=== PATIENT | female | born 1970 | race American Indian/Alaskan Native ===

== ENCOUNTER 2018-08-06 12:05 | Observation (INO) | payer OTHER ==
[2018-08-05 10:56] LABS: Basophils # (Auto) 0.1 K/mm3 (0.0-0.1); Basophils % (Auto) 1.2 % (0.0-1.8); Eosinophils # (Auto) 0.3 K/mm3 (0.0-0.4); Eosinophils % (Auto) 3.9 % (0.0-4.3); Hemoglobin 10.1 gm/dl (10.1-14.3); Lymphocytes # (Auto) 1.4 K/mm3 (1.2-5.4); Lymphocytes % (Auto) 20.2 % (13.4-35.0); Monocytes # (Auto) 0.4 K/mm3 (0.0-0.8); Monocytes % (Auto) 6.4 % (0.0-7.3)
[2018-08-05 11:12] LABS: Hematocrit 31.3 % (30.3-42.9); Mean Corpuscular HGB Conc 32 % (30-34); Mean Corpuscular Volume 72 fl (79-97); Red Blood Count 4.37 M/mm3 (3.65-5.03)
[2018-08-05 11:13] LABS: Platelet Count 506 K/mm3 (140-440); Red Cell Distribution Width 18.8 % (13.2-15.2)
--- NOTE | 2018-08-05 14:43 | Anesthesia Consultation ---
Anesthesia Consult and Med Hx Date of service: 08/05/18 - Airway Anesthetic Teeth Evaluation: Good ROM Head & Neck: Adequate Mental/Hyoid Distance: Adequate Mallampati Class: Class III - Pulmonary Exam CTA: Yes - Cardiac Exam Cardiac Exam: RRR (grade 2/6 early systolic murmur) - Pre-Operative Health Status ASA Pre-Surgery Classification: ASA2 Proposed Anesthetic Plan: General Nerve Block: TAP - Pulmonary Hx Smoking: No Hx Respiratory Symptoms: No - Cardiovascular System Hx Hypertension: No Hx Heart Attack/AMI: No Hx Cardia Arrhythmia: No - Central Nervous System CVA: No Hx Psychiatric Problems: No - Gastrointestinal Hx Gastroesophageal Reflux Disease: Yes - Endocrine Hx Renal Disease: No Hx Liver Disease: No Hx Insulin Dependent Diabetes: No Hx Non-Insulin Dependent Diabetes: No Hx Thyroid Disease: No - Hematic Hx Anemia: Yes - Other Systems Hx Alcohol Use: Yes (Occas) Hx Cancer: No Hx Obesity: Yes - Additional Comments Anesthesia Medical History Comments: Hx PONV with prior anesthetics. Consented for preop TAP block.
--- NOTE | 2018-08-05 16:25 | History and Physical Report ---
History of Present Illness Date of examination: 08/05/18 Date of admission: 08/06/2018 Chief complaint: uterine fibroids History of present illness: 47y/o with a history of uterine fibroids and menorrhagia. The patient underwent an ultrasound with findings of an enlarged uterus with the largest myoma being 7.1cm. The patient has elected for surgical management. Past History Past Medical History: other (anemia) Past Surgical History: other (tubal ligation) [employer] History: fibroids Social history: - Obstetrical History : 3 Para: 2 Hx # Term Pregnancies: 2 Number of Pregnancies: 0 Spontaneous Abortions: 1 Induced : 0 Number of Living Children: 2 Medications and Allergies Allergies Allergy/AdvReac Type Severity Reaction Status Date / Time No Known Allergies Allergy Unverified 08/03/18 13:32 Home Medications Medication Instructions Recorded Confirmed Last Taken Type No Known Home Medications [No 08/03/18 08/03/18 Unknown History Reported Home Medications] Active Meds: Active Medications Celecoxib (Celebrex) 200 mg PO PREOP NR Stop: 08/06/18 23:59 Fentanyl (Sublimaze) 100 mcg IV ONCE PRN PRN Reason: sedation for nerve block Stop: 08/06/18 23:59 Gabapentin (Neurontin) 300 mg PO PREOP NR Stop: 08/06/18 23:59 Lactated Ringer's (Lactated Ringers) 1,000 mls @ 100 mls/hr IV DIRECT JANES Midazolam HCl (Versed) 2 mg IV PREOP NR Stop: 08/06/18 23:59 Scopolamine (Transderm-Scop) 1 each TD PREOP NR Stop: 08/08/18 05:59 Review of Systems All systems: negative Genitourinary: vaginal bleeding, pelvic pain - Vital Signs Vital signs: Vital Signs Temp Pulse Resp BP Pulse Ox 98.1 F 76 20 136/63 99 08/05/18 10:20 08/05/18 10:20 08/05/18 10:20 08/05/18 10:20 08/05/18 10:20 Temp Pulse Resp BP Pulse Ox 98.1 F 76 20 136/63 99 08/05/18 10:20 08/05/18 10:20 08/05/18 10:20 08/05/18 10:20 08/05/18 10:20 - Physical Exam Breasts: Positive: deferred Cardiovascular: Regular rate Lungs: Positive: Clear to auscultation Abdomen: Positive: normal appearance Results Result Diagrams: 08/05/18 10:15 Abnormal lab results 08/05/18 Range/Units 10:15 MCV 72 L (79-97) fl MCH 23 L (28-32) pg RDW 18.8 H (13.2-15.2) % Plt Count 506 H (140-440) K/mm3 All other labs normal. Assessment and Plan - Patient Problems (1) Uterine fibroid Status: Acute Plan to address problem: scheduled for a robotic hysterectomy (2) DUB (dysfunctional uterine bleeding) Status: Acute (3) Anemia Status: Acute
[~2018-08-06 12:05] MED LIST: ANCEF/STERILE WATER 2 GM/20 ML 2 GM/20 ML SYRINGE IV NR; LACTATED RINGERS 1,000 ML IV SCH; NEURONTIN PO NR; SUBLIMAZE IV PRN; TRANSDERM-SCOP TD NR; VERSED IV NR
[2018-08-06] MEDS ORDERED: DECADRON ONE ×2 (12:18→16:31)
[2018-08-06] MEDS ORDERED: MARCAINE 0.25% INFILTRATI ONE (12:18)
[2018-08-06] MEDS ORDERED: DILAUDID IV PRN (12:26)
--- NOTE | 2018-08-06 12:26 | Anesthesia Day of Surgery ---
Anesthesia Day of Surgery - Day of Surgery Patient Examined: Yes Patient H&P Reviewed: Yes Patient is NPO: Yes
[2018-08-06] MEDS ORDERED: DILAUDID ONE (15:40)
[2018-08-06] MEDS ORDERED: DIPRIVAN 10 MG/ML IV ONE (15:41)
[2018-08-06] MEDS ORDERED: XYLOCAINE MPF 2% ONE (15:41)
[2018-08-06] MEDS ORDERED: ZEMURON IV ONE (15:43)
[2018-08-06] MEDS ORDERED: MARCAINE 0.5% INFILTRATI ONE ×2 (16:42→16:54)
[2018-08-06] MEDS ORDERED: NEOSPORIN GU IR ONE ×2 (16:42→16:51)
[2018-08-06] MEDS ORDERED: THROMBIN (BOVINE) TP ONE (16:55)
[2018-08-06] MEDS ORDERED: GELFOAM TP ONE (16:55)
[2018-08-06] MEDS ORDERED: NARCAN 0.4 MG/1 ML IV PRN (18:31)
[2018-08-06] MEDS ORDERED: TYLENOL PO PRN (18:32)
[2018-08-06] MEDS ORDERED: PERCOCET 5/325 PO PRN (18:32)
[2018-08-06] MEDS ORDERED: AMBIEN PO PRN (18:32)
[2018-08-06] MEDS ORDERED: ROBINUL ONE (18:36)
[2018-08-06] MEDS ORDERED: BLOXIVERZ ONE (18:36)
[2018-08-06] MEDS ORDERED: TORADOL ONE (18:36)
[2018-08-06] MEDS ORDERED: ZOFRAN ONE (18:36)
--- NOTE | 2018-08-06 18:41 | Operative Report ---
Operative Report Operative Report: Date of surgery: 08/06/2018 Preoperative diagnoses: Symptomatic uterine fibroids; menorrhagia Postoperative diagnoses: Same as above Procedure: Robotic hysterectomy; bilateral salpingectomy Surgeon: Zarina Bettencourt M.D. Dry Cans Back Tender: Phyllis Martin Anesthesia: Gen. endotracheal anesthesia Estimated blood loss: 150 mL Pathology: Uterus, cervix, bilateral tubes, leiomyoma Indication: 47-year-old with a history of symptomatic uterine fibroids. The patient elected to undergo definitive surgical management. Procedure: The patient was taken to the operating room and given general endotracheal anesthesia without complication. She is prepped and draped in a normal sterile fashion. A bivalve speculum was placed in the patient's vagina and a single- tooth tenaculum placed on the anterior lip of the cervix. The uterus was sounded with the uterine sound. A AOTMP uterine manipulator was placed in the bivalve speculum was then removed. Attention was then turned to the patient's abdomen where a millimeter supra umbilical skin incision was then made. A Veress needle was placed and peritoneal entry was verified water-filled syringe. Insufflation of the peritoneal cavity was performed with CO2 gas. The 12 mm trocar was then placed under direct visualization. An additional 8 mm trocar was placed on the patient's left and right lateral side just opposite of the supraumbilical trocar. An additional 5 mm right lateral trocar was then placed as the accessory port. The patient was then placed in steep Trendelenburg. The da Antoinette robot was then engaged. A fenestrated forcep was placed in arm 2 and a vessel sealer was placed in arm 1. The surgeon then transferred to the surgical console. General survey revealed a markedly enlarged fibroid uterus with multiple leiomyomas. The mesosalpinx was then isolated on the right. The vessel sealer was used to coagulate the mesosalpinx which was then transected. The tube was transected from the ovary. The tubo-ovarian ligament was then coagulated and transected. The round ligament was then coagulated and transected also. The vesicouterine peritoneum was then entered from the patient's right side. The uterine vessels were then coagulated with the vessel sealer. The vessels were then transected . Attention was then turned to the patient's left side where the tubo-ovarian ligament and mesosalpinx were again isolated coagulated and transected. The vesical peritoneum was then entered from the left and joined in the midline. Peritoneum was reflected off of the lower uterine segment. Uterine vessels were then coagulated and then transected. The blood supply to the uterus was adequately contained. A myomectomy had to be performed in order to decompress the uterus. The monopolar scissors were used to excise the serosa and a 8 cm leiomyoma was removed. There was an additional submucosal leiomyoma measuring 2-3 cm. The uterus was bivalved in order to facilitate delivery through the vagina. The V care ring was visualized. Posterior colpotomy was created with the monopolar scissors. The incision was continued circumferentially until anterior colpotomy was made. The cervix and uterus were amputated from the vaginal cuff. The uterus was then removed along with the tubes bilaterally and leiomyomas through the vagina and a warm laparotomy sponge was placed and maintain the pneumoperitoneum. The vaginal cuff was then closed in a running fashion with V lock suture. Irrigation of the pelvis was performed. Hemoblast was applied to the incision. The supraumbilical 12 mm trocar site was closed with the Abelino Taylor device. The skin was then reapproximated with 4-0 Monocryl. The tissue was sent to pathology which included the cervix and uterus. The patient was then successfully extubated. She was then taken to the recovery room in stable condition. All sponge laps and needle counts were correct x2.
[2018-08-06] MEDS ORDERED: LACTATED RINGERS 1,000 ML ONE (18:47)
[2018-08-06] MEDS ORDERED: MORPHINE PCA 30MG/30ML IV SCH (19:00)
[2018-08-06] MEDS: D5LR 1,000 ML IV SCH (20:40)
[2018-08-06] MEDS: ZOFRAN IV PRN (21:53)
[2018-08-06] MEDS: ANCEF/NS 1 GM/50 ML 1 GM/50 ML BAG IV SCH (21:53)
[2018-08-07] MEDS: TORADOL IV SCH ×2 (02:19→08:08)
[2018-08-07] MEDS ORDERED: ANCEF/NS 1 GM/50 ML 1 GM/50 ML BAG IV SCH (06:00)
[2018-08-07] MEDS: ZOFRAN IV PRN (06:09)
[2018-08-07] MEDS: D5LR 1,000 ML IV SCH (06:09)
[2018-08-07] MEDS: ANCEF/NS 1 GM/50 ML 1 GM/50 ML BAG IV SCH (06:19)
[2018-08-07 06:35] LABS: Hematocrit 27.7 % (30.3-42.9); Hemoglobin 8.7 gm/dl (10.1-14.3)
--- NOTE | 2018-08-07 15:44 | Progress Note ---
Assessment and Plan POD 1 s/p robotic tlh. Patient denies eating solid food due to subsequent nausea. Pt has not passed flatus nor had bowel movement. Patient was initially scheduled to be discharged today, but will defer until GI functioning returns. Subjective - Subjective Date of service: 08/07/18 Interval history: POPD 1 s/p robotic tlh. Patient complains of incisional pain and nausea after eating. Patient reports: pain poorly controlled, nauseated, other (no flatus) Objective - Vital Signs Latest vital signs: Vital Signs Temp Pulse Pulse Resp BP BP Pulse Ox 08/07/18 12:11 99.3 F 71 18 141/65 98 08/07/18 08:10 18 08/07/18 07:37 99.0 F 81 18 140/66 96 08/07/18 05:04 93 H 137/62 97 08/07/18 04:59 89 121/71 98 08/07/18 04:50 98.9 F 87 20 121/71 08/07/18 02:00 16 08/07/18 00:00 98.2 F 20 08/06/18 23:22 97 H 120/60 95 08/06/18 22:00 85 16 08/06/18 21:34 98.2 F 08/06/18 20:31 83 08/06/18 20:00 16 08/06/18 19:54 95 H 142/76 95 08/06/18 19:32 97.8 F 85 14 145/76 100 08/06/18 19:17 83 14 138/74 100 08/06/18 19:12 82 16 131/71 100 08/06/18 19:07 91 H 16 145/78 100 08/06/18 19:05 16 08/06/18 19:02 97.4 F L 102 H 12 152/87 100 Intake and Output 08/07/18 08/07/18 08/07/18 06:59 14:59 22:59 Intake Total 1240 660 Output Total 400 650 Balance 840 10 Intake: IV 1000 D5lr 1,000 ml @ 125 mls/ 1000 hr IV DIRECT JANES Rx#: [id number] Oral 240 480 Intake, Free Water 180 Output: Urine 400 650 Indwelling Catheter 400 Void 650 Other: Total, Intake Amount 240 360 Total, Output Amount 400 300 # Voids Void 1 - Exam Breasts: Present: deferred Cardiovascular: Present: Regular rate, Normal S1, Normal S2 Lungs: Present: Clear to auscultation, Normal air movement Abdomen: Present: distention, tenderness, abnormal bowel sounds (decreased) Vulva: both: normal Extremities: Present: normal Deep Tendon Reflex Grade: Normal +2 - Labs Labs: Abnormal lab results 08/07/18 Range/Units 05:50 Hgb 8.7 L (10.1-14.3) gm/dl Hct 27.7 L (30.3-42.9) %
[2018-08-07] MEDS: IBUPROFEN PO PRN (15:55)
[2018-08-07] MEDS: MYLICON PO PRN ×2 (15:56→21:46)
[2018-08-07] MEDS ORDERED: MILK OF MAGNESIA PO PRN (20:32)
[2018-08-07] MEDS: COLACE PO SCH (21:46)
--- NOTE | 2018-08-08 08:50 | Discharge Summary ---
Providers - Providers Date of Admission: 08/06/18 18:32 Date of discharge: 08/08/18 Attending physician: CHERELLE BROOKS Primary care physician: CHERELLE BROOKS Hospitalization Reason for admission: other (fibroids) Procedure: other (TLH) Episiotomy: none Laceration: none Incision: normal, dry, intact Discharge diagnosis: other Condition at discharge: Good Disposition: DC-01 TO HOME OR SELFCARE Plan - Discharge Medications Prescriptions: Docusate Sodium [Colace] 100 mg PO BID PRN #60 capsule PRN Reason: Constipation Ibuprofen [Motrin] 800 mg PO Q8HR PRN #60 tablet PRN Reason: Pain , Severe (7-10) oxyCODONE /ACETAMINOPHEN [Percocet 5/325] 1 tab PO Q6HR PRN #30 tablet PRN Reason: Pain - Provider Discharge Summary Activity: routine, no sex for 6 weeks, no heavy lifting 4 weeks, no strenuous exercise Diet: routine Instructions: routine Additional instructions: [] Smoking cessation referral if applicable(refer to patient education folder for contact #) [] Refer to [facility]'s [facility] Booklet Call your doctor immediately for: * Fever > 100.5 * Heavy vaginal bleeding ( >1 pad per hour) * Severe persistent headache * Shortness of breath * Reddened, hot, painful area to leg or breast * Drainage or odor from incision. * Keep incision clean and dry at all times and follow doctor's instructions regarding bathing/showering - Follow up plan Follow up: CHERELLE BROOKS MD [Primary Care Provider] - 14 Days Forms: [id number] Discharge Summary, Discharge Signature Page
[2018-08-08 09:05] VITALS: BP 125/69
[2018-08-08] MEDS: IBUPROFEN PO PRN (09:54)
[2018-08-08] MEDS: COLACE PO SCH (09:54)
== END 2018-08-08 11:00 | disposition home or self-care (01) ==
LOC: OR 12:05 → OB 18:32 → INTOOBSV 18:32 → OBSVTOIN 18:32
PROVIDERS: ADMIT Obstetrics & Gynecology; ATTEND Obstetrics & Gynecology
DX: D25.9 Leiomyoma of uterus, unspecified (principal); N92.0 Excessive and frequent menstruation with regular cycle; N93.8 Other specified abnormal uterine and vaginal bleeding; D64.9 Anemia, unspecified; Z79.899 Other long term (current) drug therapy; Z98.51 Tubal ligation status
CPT/HCPCS: 36415; 58554; 64450; 84703; 85014; 85018; 85025; 86850; 86900; 86901; 88307; 96365; 96366; 96375; 96376; C1765; G0378; J0690; J1100; J1170; J1885; J2250; J2270; J2405; J2704; J2710; J3010; J7120; J7121; S2900; A4649